=== PATIENT | female | born 1980 | race African-American/Black ===

== ENCOUNTER 2022-04-27 13:54 | Emergency (ER) | payer BC ==
[~2022-04-27] VITALS: Ht 165.1 cm; Wt 100.7 kg
[2022-04-27] MEDS ORDERED: HYDRALAZINE HCL 20 MG/ML VIAL IV STA (14:14)
[2022-04-27 14:34] LABS: BASOPHILS # (AUTO) 0.1 (0.0-0.1); BASOPHILS % 0.5 % (0.0-1.0); EOSINOPHILS % 0.3 % (0.0-6.0); HEMATOCRIT 42.7 % (34.2-44.1); HEMOGLOBIN 13.5 g/dL (12.0-16.0); LYMPHOCYTES # (AUTO) 2.2 (1.0-3.2); LYMPHOCYTES % 21.5 % (18.0-39.1); MEAN CORPUSCULAR HEMOGLOBIN 30.1 pg (28-32); MEAN CORPUSCULAR HGB CONC 31.6 g/dL (31-35); MEAN CORPUSCULAR VOLUME 95.1 fL (81-99); MONOCYTES # (AUTO) 0.6 (0.2-0.8); NEUTROPHILS # (AUTO) 7.2 (2.1-6.9); NEUTROPHILS % 71.5 % (38.7-80.0); PLATELET COUNT 343 x10e3/uL (140-360); RED BLOOD COUNT 4.49 x10e6/uL (3.6-5.1); RED CELL DISTRIBUTION WIDTH 11.6 % (11.7-14.4)
[2022-04-27 14:55] LABS: ALBUMIN 4.3 g/dL (3.5-5.0); ANION GAP 18.4 mmol/L (8-16); CREATININE, SERUM 1.05 mg/dL (0.57-1.11); POTASSIUM 3.4 mmol/L (3.5-5.1)
[2022-04-27] MEDS ORDERED: LABETALOL HCL 5 MG/ML 20ML VIAL IV STA (15:36)
[2022-04-27] MEDS ORDERED: LABETALOL HCL 20 ML ONE (15:53)
[2022-04-27 18:02] VITALS: BP 185/90
== END 2022-04-27 18:03 | disposition home or self-care (01) ==
LOC: ER 14:07
DX: I16.0 Hypertensive urgency (principal); R42 Dizziness and giddiness; I10 Essential (primary) hypertension; E11.9 Type 2 diabetes mellitus without complications; E78.5 Hyperlipidemia, unspecified; F41.9 Anxiety disorder, unspecified
CPT/HCPCS: 36415; 70450; 80053; 84702; 85025; 99284; J0360; J3490